=== PATIENT | female | born 1970 ===

== ENCOUNTER 2017-03-31 06:35 | Day surgery (SDC) | payer OTHER ==
[2017-03-27 10:07] VITALS: BMI 28.3
[2017-03-31] MEDS ORDERED: Propofol 10 mg/ml Inj (20 ML) ONE (07:14)
[2017-03-31] MEDS ORDERED: ePHEDrine 50 mg/ml Inj ONE (07:15)
[2017-03-31] MEDS ORDERED: Rocuronium 10 mg/ml (5 ml) ONE (07:15)
[2017-03-31] MEDS ORDERED: Phenylephrine 10 mg/ml Inj ONE (07:15)
[2017-03-31] MEDS ORDERED: Succinylcholine 200 mg/10 ml Inj IV ONE (07:15)
[2017-03-31] MEDS ORDERED: Strong Iodine Topical Sol. 5%-10% ONE (07:25)
[2017-03-31] MEDS ORDERED: Ferric Subsulfate Sol(60 mL) ONE (07:26)
[2017-03-31] MEDS ORDERED: Lidocaine 1% w Epi 1:100,000 Inj ONE (07:27)
[2017-03-31] MEDS ORDERED: Lactated Ringer's 1,000 ML IV ONE (08:30)
--- NOTE | 2017-03-31 09:10 | CP.SDSHP ---
Same Day Surgery H & P - History Proposed Procedure: LEEP Pre-Op Diagnosis: cervical dysplasia - Allergies Allergies: Allergies seasonal Allergy (Uncoded 03/31/17 07:41) CONGESTION sinus congestion - Physical Exam Vital Signs: Vital Signs 03/31/17 07:42 Temperature 98.5 F Pulse Rate 61 Respiratory 18 Rate Blood Pressure 125/69 O2 Sat by Pulse 100 Oximetry Mental Status: Alert & Oriented x3 Neuro: WNL Heart: WNL Lungs: WNL GI: WNL - {Optional Preform as Required} Breast: WNL Abdomen: WNL BROACH OPERATOR: WNL - Impression Pt. Evaluated Today:Candidate for Anesthesia & Procedure: Yes - Date & Time Date: 03/31/17 Time: 09:10 Short Stay Discharge - Short Stay Discharge Admitting Diagnosis/Reason for Visit: R87.619 Disposition: HOME/ ROUTINE Referrals: FAMILY PROVIDER,NO [Primary Care Provider] - Follow-up: Pt to follow up in 2 wks in office Discharge when meets home criteria
[2017-03-31] MEDS ORDERED: Midazolam 2 MG/2 ML VIAL ONE (09:12)
[2017-03-31] MEDS ORDERED: Strong Iodine Topical Sol. 5%-10% TOP ONE (09:29)
[2017-03-31 10:32] VITALS: O2SAT 99
[2017-03-31] MEDS ORDERED: Lactated Ringer's 1,000 ML IV SCH (10:35)
[2017-03-31] MEDS ORDERED: Oxycodone/Acetaminophen 5/325 mg Tab PO PRN (10:36)
[2017-03-31 11:47] VITALS: BP 116/61; PULSE 52; RESP 18; TEMP 97.7
--- NOTE | 2017-04-01 00:38 | OP ---
PROCEDURE DATE: 03/31/2017 PREOPERATIVE DIAGNOSIS: Cervical dysplasia. POSTOPERATIVE DIAGNOSIS: Cervical dysplasia. PROCEDURE: LEEP procedure. SURGEON: Eugenia Kumar MD ANESTHESIA ADMINISTERED BY: Dr. Roblero. ESTIMATED BLOOD LOSS: Negligible. URINE OUTPUT: 100 mL TOTAL FLUID INPUT: 500 mL PATHOLOGY SPECIMEN: ECC and cervical specimen. COMPLICATIONS: None. CONDITION: Stable. DESCRIPTION OF PROCEDURE: After all consents were signed, all questions were answered, the patient was brought to the OR, placed in dorsal lithotomy position. The patient was placed under anesthesia without difficulty. A grounding leg pad was placed on the patient's leg. The patient prepped and draped in the normal saline fashion with the leg placed in the Jeff type stirrups. A red-tip catheter was introduced and about 100 mL of clear urine was drained. An insulated speculum was placed in the patient's vagina. Smoke evacuator tubing was connected to the speculum. Lugol solution was applied to the cervix to further outline the field. The LEEP unit was adjusted to power setting. ECC specimen was obtained and sent to pathology, and then a LEEP loop of 12 mm x 15 mm to the exocervix was selected. The LEEP procedure was performed excising the cone portion of the cervix and extending beyond the margins of the Lugol's unstained area without issues and the specimen placed in the formalin jar after tagging at 12 o'clock position with a stitch. A ball-tip cautery was used to further cauterize the bed of the cervix from any bleeding that was noted as well as cauterization of the outside edges of the cervix. At this point, the patient was hemostatic. The case was terminated. All instruments were removed from the vagina. The patient was cleaned and taken to the recovery room in stable condition. There were no other complications. The patient was given instructions to follow up in the office in 2 weeks. A script of Percocet with 5 tablets was given to the patient for postoperative pain. Otherwise, there were no other complications. Eugenia Kumar MD
== END 2017-03-31 12:20 | disposition home or self-care (01) ==
LOC: H.OPSURG 06:35
PROVIDERS: ATTEND Obstetrics & Gynecology
DX: R87.619 Unspecified abnormal cytological findings in specimens from cervix uteri (principal); J45.909 Unspecified asthma, uncomplicated